=== PATIENT | female | born 1950 | race Caucasian/White ===

== ENCOUNTER 2016-12-13 09:37 | Emergency (ER) | payer MEDICARE ==
[2016-12-13 09:42] VITALS: BP 132/71
--- NOTE | 2016-12-13 11:30 | RAD ---
INDICATION: Head injury and headache. COMPARISON: There are no prior studies available for comparison. TECHNIQUE: Contiguous axial sections of the brain were obtained from the skull base to the vertex without contrast. FINDINGS: The ventricles, cisterns and sulci are within normal limits. No significant focal abnormality or mass effect is seen. There is no evidence for hemorrhage. No significant focal osseous abnormality is seen. The visualized portion of the paranasal sinuses and mastoid air cells appear clear. IMPRESSION: NO EVIDENCE FOR ACUTE INTRACRANIAL ABNORMALITY.
--- NOTE | 2016-12-13 14:23 | ED ---
April Arias Salem, scribed for John Boothe MD on 12/13/16 at 1052 . Headache - HPI Summary HPI Summary: Patient is a 66 y/o F who presents to the ED with a headache since earlier today. She states that she hit the top of her head 2 days in a row in the same location. She states that headache has moved to front of head and is radiating down her neck, but pain is not severe. She reports tenderness to touch, but denies LOC, disturbance with light, or weakness in extremities. Pt takes ASA 81mg at night, but denies taking any other blood thinners. - History Of Current Complaint Chief Complaint: EDHeadache Stated Complaint: HIT HEAD/HEADACHE Time Seen by Provider: 12/13/16 10:29 Hx Obtained From: Patient Last Known Well Date: 12/11/16 Onset/Duration: Gradual Onset, Started hours ago, Still Present Initially Headache Was: Mild Currently Pain Is: Mild Timing: Constant Location of Headache: Temporal Radiates to: Neck. Aggravating Factor: Nothing Allevating Factors: Nothing Associated Signs And Symptoms: Negative - Allergies/Home Medications Allergies/Adverse Reactions: Allergies Allergy/AdvReac Type Severity Reaction Status Date / Time No Known Allergies Allergy Verified 12/13/16 09:39 PMH/Surg Hx/FS Hx/Imm Hx Endocrine/Hematology History: Denies: Hx Diabetes Cardiovascular History: Denies: Hx Hypertension Infectious Disease History: No Infectious Disease History: Denies: Traveled Outside the [place] in Last 30 Days - Family History Known Family History: Positive: Hypertension - Social History Alcohol Use: None Hx Substance Use: No Substance Use Type: Reports: None Hx Tobacco Use: Yes Smoking Status (MU): Former Smoker Review of Systems Negative: Photophobia Neurological: Other - No LOC. Positive: Headache. Negative: Weakness All Other Systems Reviewed And Are Negative: Yes Physical Exam - Summary Physical Exam Summary: The patient is well-nourished in no acute distress and in no acute pain. The skin is warm and dry and skin color reflects adequate perfusion. HEENT: The head is normocephalic and atraumatic. The pupils are equal and reactive. The conjunctivae are clear and without drainage. Neck is supple with full range of motion and non-tender. Respiratory: Chest is non-tender. Lungs are clear to auscultation and breath sounds are symmetrical and equal. Cardiovascular: Hear is regular rate and rhythm. There is no murmur or rub auscultated. Abdomen: The abdomen is soft and non-tender. Musculoskeletal: There is no back pain noted. Extremities are non-tender with full range of motion. Neurological: Patient is alert and oriented to person, place and time. The patient has symmetrical motor strength in all four extremities. Tenderness to parietal area. No hemotympanum. No No raccoon or kenney sign. No focal neuronal deficit. Psychiatric: The patient has an appropriate affect and does not exhibit any anxiety or depression. Triage Information Reviewed: Yes Vital Signs On Initial Exam: Initial Vitals Temp Pulse Resp BP Pulse Ox 97.8 F 80 16 132/71 100 12/13/16 09:40 12/13/16 09:40 12/13/16 09:40 12/13/16 09:40 12/13/16 09:40 Vital Signs Reviewed: Yes - Jonathan Coma Scale Coma Scale Total: 15 Diagnostics - Vital Signs Vital Signs Temp Pulse Resp BP Pulse Ox 12/13/16 09:41 97.3 F 79 16 132/71 100 12/13/16 09:40 97.8 F 80 16 132/71 100 - Laboratory Lab Statement: Any lab studies that have been ordered have been reviewed, and results considered in the medical decision making process. - CT BRAIN CT Interpretation Completed By: Radiologist - IMPRESSION: NO EVIDENCE FOR ACUTE INTRACRANIAL ABNORMALITY. Re-Evaluation - Re-Evaluation First Eval Re-Evaluation Time: 11:46 Comment: Informed pt of imaging results. Headache Course/Dx - Course Course Of Treatment: 66 y/o F presents with a headache since earlier today. She reports tenderness to touch, but denies LOC, disturbance with light, or weakness in extremities. Pt takes ASA [address] was negative. Pt will be DC'd. - Diagnoses Differential Diagnosis/HQI/PQRI: Epidural Hematoma, Subarachnoid Hemorrhage, Other - fracture Provider Diagnoses: Head contusion Discharge - Discharge Plan Condition: Stable Disposition: HOME Patient Education Materials: Contusion in Adults (ED) Referrals: Edouard Bowie NP [Primary Care Provider] - Additional Instructions: Please follow up with your primary care provider. The documentation as recorded by the April vieyra Salem accurately reflects the service I personally performed and the decisions made by me, John Boothe MD.
== END 2016-12-13 12:03 | disposition home or self-care (01) ==
LOC: ED 09:37
DX: S00.03XA Contusion of scalp, initial encounter (principal); R51 Headache; Z87.891 Personal history of nicotine dependence; W22.8XXA Striking against or struck by other objects, initial encounter; Y93.9 Activity, unspecified; Y92.9 Unspecified place or not applicable
CPT/HCPCS: 70450; 99282

== ENCOUNTER 2017-07-15 10:46 | Emergency (ER) | payer MEDICARE ==
[2017-07-15 13:27] VITALS: BP 134/69
--- NOTE | 2017-07-15 13:30 | UC ---
Respiratory Complaint HPI - HPI Summary HPI Summary: Cold symptoms cough, body aches no fever sore throat---unknown if she had an illness exposure, did get a few vaccine this year--Is planning on traveling tomorrow - History of Current Complaint Chief Complaint: UCRespiratory Stated Complaint: COUGH BODYACHES SORE THROAT RESP Time Seen by Provider: 07/15/17 13:06 Hx Obtained From: Patient ?: No Onset/Duration: Gradual Onset, Lasting Days - 5, Still Present Timing: Constant Severity Initially: Moderate Severity Currently: Moderate Character: Cough: Nonproductive Aggravating Factors: Nothing Alleviating Factors: Nothing Associated Signs And Symptoms: Positive: URI - Allergies/Home Medications Allergies/Adverse Reactions: Allergies Allergy/AdvReac Type Severity Reaction Status Date / Time No Known Allergies Allergy Verified 07/15/17 10:53 Home Medications: Home Medications Linaclotide [Linzess] 1 tab PO DAILY 07/15/17 [History Confirmed 07/15/17] PMH/Surg Hx/FS Hx/Imm Hx Previously Healthy: Yes - Surgical History Surgical History: Yes Surgery Procedure, Year, and Place: ovarian cysts - Family History Known Family History: Positive: Hypertension - Social History Occupation: Retired Lives: With Family Alcohol Use: None Substance Use Type: None Smoking Status (MU): Former Smoker Review of Systems Constitutional: Negative Skin: Negative Eyes: Negative ENT: Sore Throat, Nasal Discharge, Sinus Congestion Respiratory: Cough Cardiovascular: Negative Gastrointestinal: Negative Genitourinary: Negative Motor: Negative Neurovascular: Negative Musculoskeletal: Arthralgia, Myalgia Neurological: Negative Psychological: Negative Is Patient Immunocompromised?: No All Other Systems Reviewed And Are Negative: Yes Physical Exam Triage Information Reviewed: Yes Appearance: Well-Appearing, No Pain Distress, Well-Nourished Vital Signs: Initial Vital Signs Temp 97.8 F 07/15/17 10:54 Pulse 83 07/15/17 10:54 Resp 16 07/15/17 10:54 BP 113/61 07/15/17 10:54 Pulse Ox 100 07/15/17 10:54 Vital Signs Reviewed: Yes Eye Exam: Normal Eyes: Positive: Conjunctiva Clear ENT Exam: Normal ENT: Positive: Normal ENT inspection, Hearing grossly normal, Pharynx normal, TMs normal, Uvula midline. Negative: Nasal congestion, Nasal drainage, Tonsillar swelling, Tonsillar exudate, Trismus, Muffled voice, Hoarse voice, Dental tenderness, Sinus tenderness Dental Exam: Normal Neck exam: Normal Neck: Positive: Supple, Nontender, No Lymphadenopathy Respiratory Exam: Normal Respiratory: Positive: Chest non-tender, Lungs clear, Normal breath sounds, No respiratory distress, No accessory muscle use Cardiovascular Exam: Normal Cardiovascular: Positive: RRR, No Murmur, Pulses Normal, Brisk Capillary Refill Musculoskeletal Exam: Normal Musculoskeletal: Positive: Strength Intact, ROM Intact, No Edema Neurological Exam: Normal Neurological: Positive: Alert, Muscle Tone Normal Psychological Exam: Normal Skin Exam: Normal UC Diagnostic Evaluation - Laboratory O2 Sat by Pulse Oximetry: 100 Diagnostic Studies Comment: RST, Influenza A/B (-) Respiratory Course/Dx - Course Course Of Treatment: increase fluids, rest face mask, hand hygiene follow with pcp prn - Differential Dx/Diagnosis Provider Diagnoses: Viral illness URI Discharge - Discharge Plan Condition: Stable Disposition: HOME Patient Education Materials: Viral Syndrome (ED), Cold Symptoms (ED) Referrals: Edouard Bowie, BUREAU DIRECTOR [Primary Care Provider] - If Needed
== END 2017-07-15 13:55 | disposition home or self-care (01) ==
LOC: UCEAST 10:46
DX: B34.9 Viral infection, unspecified (principal); J06.9 Acute upper respiratory infection, unspecified; Z87.891 Personal history of nicotine dependence
CPT/HCPCS: 87502; 87651; 99212; G0463

== ENCOUNTER 2018-07-27 09:24 | Emergency (ER) | payer MEDICARE ==
--- NOTE | 2018-07-27 09:35 | UC ---
FLU HPI - HPI Summary HPI Summary: 67 yo female presents with headache, dizziness, and nausea. She tells me that last night she made coffee for this morning. She had 2-3 cups of coffee as usual between [id number]. Realized that the company had changed coffee scoopers and she had put significantly more coffee in the machine that usual - therefore the concentration was much higher. Apparently she had the equivalent of about 15 cups of coffee. For the first hour she reports being very hyper and her HR was elevated. Then she began to have a headache, dizziness, and generalized stomach upset with nausea. Her brought her to . She has a history of IBS, but states no other PMHx. She has not taken anything OTC or eaten anything yet today. She denies SOB, chest pain, vomiting, dysuria, diarrhea. - History of Current Complaint Chief Complaint: UCGeneralIllness Stated Complaint: NAUSEA, RAPID PULSE Time Seen by Provider: 07/27/18 09:35 Hx Obtained From: Patient Onset/Duration: Sudden Onset Severity Currently: Moderate Severity Initially: Moderate Pain Intensity: 6 Pain Scale Used: 0-10 Numeric - Allergy/Home Medications Allergies/Adverse Reactions: Allergies Allergy/AdvReac Type Severity Reaction Status Date / Time No Known Allergies Allergy Verified 07/27/18 09:33 PMH/Surg Hx/FS Hx/Imm Hx - Additional Past Medical History Additional PMH: IBS - Surgical History Surgical History: Yes Surgery Procedure, Year, and Place: ovarian cysts - Family History Known Family History: Positive: Hypertension - Social History Lives: With Family Alcohol Use: None Substance Use Type: None Smoking Status (MU): Former Smoker Review of Systems All Other Systems Reviewed And Are Negative: Yes Constitutional: Positive: Negative Skin: Positive: Negative Eyes: Positive: Negative ENT: Positive: Negative Respiratory: Positive: Negative Cardiovascular: Positive: Negative Gastrointestinal: Positive: Abdominal Pain, Nausea Genitourinary: Positive: Negative Neurovascular: Positive: Negative Neurological: Positive: Headache Psychological: Positive: Negative Physical Exam - Summary Physical Exam Summary: GENERAL: NAD. WDWN. No pain distress. SKIN: No rashes, sores, ulcers, masses, lesions. HEENT: Head: AT/NC. Eyes: PERRLA. EOM intact. Conjunctiva clear without inflammation or discharge. NECK: Supple. Nontender. No lymphadenopathy. CHEST: CTAB. No r/r/w. No accessory muscle use. Breathing comfortably and in no distress. CV: RRR. Without m/r/g. Pulses intact. Brisk cap refill. ABDOMEN: Mild TTP generalized without specific point tenderness. Soft. No distention or guarding. No CVA tenderness. Bowel sounds present NEURO: A&Ox3. 3 word recall, remote, recent memory, ability to follow 2-step directions, and attention intact. CN: II: Peripheral shaw intact. Vision normal. III, IV, : EOMI. No nystagmus. PERRLA. V: Sensations intact and symmetric. Opens mouth and clenches teeth. VII: No facial asymmetry. Forehead wrinkles. Grins, shuts eyes, frowns, puffs cheeks. VIII: Hearing intact to finger rub. IX, X: Swallows and coughs. Uvula midline. XI: Shrugs shoulders. Turns head against resistance. XII: No tongue deviation [id number] are intact. Gait with normal base. Romberg: maintains balance, no pronator drift. Normal speech. No facial drooping. PSYCH: Age appropriate behavior. Triage Information Reviewed: Yes Vital Signs: Initial Vital Signs Temp 98 F 07/27/18 09:31 Pulse 82 07/27/18 09:31 Resp 17 07/27/18 09:31 BP 137/76 07/27/18 09:31 Pulse Ox 100 07/27/18 09:31 Laboratory Tests 07/27/18 07/27/18 09:43 09:45 POC Urine Color Yellow POC Urine Clarity Cloudy POC Urine pH 7.5 POC Ur Specif [place] 1.015 POC Urine Protein Negative POC Ur Glucose (UA) Negative POC Urine Ketones Trace A POC Urine Blood Negative POC Urine Nitrite Negative POC Urine Bilirubin Negative POC Urine Urobilinogen 0.2 POC U Leukocyte Esteras Negative Influenza A (Rapid) Negative Influenza B (Rapid) Negative Vital Signs Reviewed: Yes Re-Evaluation - Re-Evaluation First Eval Re-Evaluation Time: 11:27 Change: Improved Comment: Pt reports feeling significant improvement of her symptoms. Flu Course/Dx - Course Course Of Treatment: EKG: Sinus bradycardia at [address] changes as read by Dr. De La Cruz. She was given zofran, maalox, and 1L NS in the clinic with great relief. She is feeling much better. Discussed with pt and that should her symptoms worsen or if she develops chest pain/palpitations to call 911 or go to the ED immediately. They voiced understanding. - Differential Dx/Diagnosis Provider Diagnosis: Caffeine overdose Discharge - Sign-Out/Discharge Documenting (check all that apply): Patient Departure All imaging exams completed and their final reports reviewed: No Studies - Discharge Plan Condition: Stable Disposition: HOME Patient Education Materials: Caffeine Use (ED) Referrals: Edouard Bowie NP [Primary Care Provider] - Additional Instructions: If you develop a fever, shortness of breath, chest pain, new or worsening symptoms - please call your PCP or go to the ED. Rest and drink plenty of water today. Avoid sugary and acidic drinks/foods for today. - Billing Disposition and Condition Condition: STABLE Disposition: Home
[2018-07-27] MEDS ORDERED: Ondansetron ODT TAB* 4 MG SL ONE (09:52)
[2018-07-27 09:55] LABS: Influenza A Molecular NEGATIVE (Negative); Influenza B Molecular NEGATIVE (Negative)
[2018-07-27] MEDS ORDERED: NS 0.9% 1000 ML** 1,000 ML IV ONE (10:14)
[2018-07-27] MEDS ORDERED: Al Hydrox/Mg Hydrox/Simet LIQ* 30 ML UDC PO ONE (10:23)
[2018-07-27 11:27] VITALS: BP 131/58
== END 2018-07-27 11:50 | disposition home or self-care (01) ==
LOC: UCEAST 09:24
DX: T43.611A Poisoning by caffeine, accidental (unintentional), initial encounter (principal); R42 Dizziness and giddiness; R11.0 Nausea; K30 Functional dyspepsia; Z87.891 Personal history of nicotine dependence; Y92.9 Unspecified place or not applicable
CPT/HCPCS: 81003; 93005; 96360; 99212; A9270-GY; G0463